=== PATIENT | female | born 1965 | race Two or more races ===

== ENCOUNTER 2022-02-04 08:45 | Emergency (ER) | payer OTHER ==
[~2022-02-04] VITALS: Ht 167.6 cm; Wt 59.1 kg
[2022-02-04] MEDS ORDERED: cloNIDine HCL 0.1 MG TAB ONE (08:56)
[2022-02-04] MEDS ORDERED: cloNIDine HCL 0.1 MG TAB PO ONE (09:00)
[2022-02-04 09:08] VITALS: BP 172/107
[2022-02-04] MEDS ORDERED: ACET-1080 PO (09:56)
[2022-02-04] MEDS ORDERED: ACETAMINOPHEN 500 MG TAB PO ONE (10:00)
== END 2022-02-04 10:05 | disposition home or self-care (01) ==
LOC: ER 08:45
DX: G44.209 Tension-type headache, unspecified, not intractable (principal); F41.9 Anxiety disorder, unspecified; I10 Essential (primary) hypertension; Z79.899 Other long term (current) drug therapy
CPT/HCPCS: 70450

== ENCOUNTER 2022-07-23 16:39 | Emergency (ER) | payer MEDICAID ==
[~2022-07-23] VITALS: Ht 165.1 cm; Wt 58.5 kg
[~2022-07-23 16:39] MED LIST: ACET-1080 PO
[2022-07-23 17:41] LABS: Albumin 4.6 g/dL (3.4-5.0); BUN/Creatinine Ratio 27.9 (10.0-20.0); Calcium 9.9 mg/dL (8.5-10.1); Potassium 4.1 mmol/L (3.5-5.1)
[2022-07-23 17:49] LABS: Basophils # (auto) 0 10 ^3/uL (0-0.2); Basophils % (auto) 0.7 % (0.0-2.0); Eosinophils # (auto) 0.1 10 ^3/uL (0-0.8); Hematocrit 40.7 % (36.0-46.0); Hemoglobin 13.9 g/dL (12.2-16.2); Lymphocytes # (auto) 2.6 10 ^3/uL (0.4-5.4); Mean Corpuscular Hemoglobin 31.9 pg (28.0-32.0); Mean Corpuscular Hgb Conc. 34.2 g/dL (32.0-36.0); Mean Corpuscular Volume 93.1 fL (80.0-100.0); Monocytes # (auto) 0.4 10 ^3/uL (0-1.3); Monocytes % (auto) 6.2 % (0.0-12.0); Neutrophils # (auto) 3.7 10 ^3/uL (1.6-8.6); Neutrophils % (auto) 53.1 % (37.0-80.0); Nucleated Red Blood Cells % 0.1 %; Red Blood Cells 4.37 10^6/uL (4.0-5.20); White Blood Cell 6.9 10^3/uL (4.4-10.8)
[2022-07-23 17:56] LABS: INR 0.99 (0.9-1.15); Partial Thromboplastin Time 28.6 sec (24.6-33.4)
[2022-07-23 22:30] VITALS: BP 147/94
== END 2022-07-23 22:35 | disposition home or self-care (01) ==
LOC: ER 16:39
DX: R07.89 Other chest pain (principal); F41.9 Anxiety disorder, unspecified; E78.5 Hyperlipidemia, unspecified; I10 Essential (primary) hypertension
CPT/HCPCS: 36415; 71045; 80053; 84484; 85025; 85379; 85610; 85730; 93005

== ENCOUNTER 2023-08-29 15:34 | Inpatient (IN) | payer MEDICAID ==
[~2023-08-29] VITALS: Ht 165.1 cm; Wt 62.5 kg
[2023-08-29 16:14] LABS: Basophils # (auto) 0.1 10 ^3/uL (0-0.2); Basophils % (auto) 0.8 % (0.0-2.0); Eosinophils # (auto) 0 10 ^3/uL (0-0.8); Eosinophils % (auto) 0.5 % (0.0-7.0); Hematocrit 38.8 % (36.0-46.0); Lymphocytes # (auto) 1.3 10 ^3/uL (0.4-5.4); Lymphocytes % (auto) 20.5 % (10.0-50.0); Mean Corpuscular Hemoglobin 31.4 pg (28.0-32.0); Mean Corpuscular Hgb Conc. 33.3 g/dL (32.0-36.0); Mean Corpuscular Volume 94.2 fL (80.0-100.0); Monocytes # (auto) 0.3 10 ^3/uL (0-1.3); Monocytes % (auto) 4.7 % (0.0-12.0); Neutrophils # (auto) 4.6 10 ^3/uL (1.6-8.6); Neutrophils % (auto) 73.5 % (37.0-80.0); Red Blood Cells 4.12 10^6/uL (4.0-5.20); Red Cell Distribution Width 13.3 % (11.8-14.3); White Blood Cell 6.2 10^3/uL (4.4-10.8)
[2023-08-29 16:31] LABS: Alanine Aminotransferase 23 U/L (7-40); Albumin 4.9 g/dL (3.2-4.8); Alkaline Phosphatase 79 U/L (46-116); Anion Gap 7 (5-15); Aspartate Aminotransferase 19 U/L (13-40); BUN/Creatinine Ratio 28.2 (10.0-20.0); Bilirubin, Total 1.6 mg/dL (0.2-1.0); Blood Urea Nitrogen 22 mg/dL (9-23); Calcium 9.9 mg/dL (8.5-10.1); Carbon Dioxide 26 mmol/L (20-30); Chloride 108 mmol/L (98-107); Glucose 111 mg/dL (74-106); Potassium 3.6 mmol/L (3.5-5.1); Sodium 141 mmol/L (136-145); Total Protein 7.3 g/dL (5.7-8.2)
[2023-08-29] MEDS ORDERED: MORPHINE SULFATE INJ 2 MG/ml SYRG IV PRN (21:00)
[2023-08-29] MEDS ORDERED: ACETAMINOPHEN 325 MG TAB PO PRN (21:00)
[2023-08-29] MEDS ORDERED: NITROGLYCERIN 0.4 MG SL TAB SL PRN (21:00)
[2023-08-29] MEDS ORDERED: ONDANSETRON HCL 4 MG/2 ML VIAL IV PRN (21:00)
[2023-08-29 22:55] VITALS: PULSE 83; RESP 13; O2SAT 100
[2023-08-29] MEDS: ASPirin 325 MG TAB PO ONE (22:59)
[2023-08-29] MEDS: ATORVASTATIN 20 MG TAB PO SCH (22:59)
[2023-08-29] MEDS: SODIUM CHLORIDE 0.9% 1,000 ML IV ONE (22:59)
[2023-08-29] MEDS: NITROGLYCERIN 0.4 MG SL TAB SL ONE (23:04)
[2023-08-29 23:12] VITALS: BP 135/85; PULSE 66; RESP 18; TEMP 98.6; O2SAT 99
[2023-08-30] VITALS (15 sets, daily range): BP systolic 107–147; BP diastolic 75–106; PULSE 56–76; RESP 14–20; TEMP 97.7–98.7; O2SAT 97–100
[2023-08-30] MEDS ORDERED: OMEG306C OR (00:52)
[2023-08-30] MEDS ORDERED: ASPI-543 PO (00:52)
[2023-08-30] MEDS ORDERED: LISI40TA16 PO (00:52)
[2023-08-30] MEDS ORDERED: FOLI-119 PO (00:52)
[2023-08-30 06:17] LABS: Chloride 113 mmol/L (98-107); Sodium 143 mmol/L (136-145)
[2023-08-30 06:18] LABS: Anion Gap 5 (5-15); Carbon Dioxide 25 mmol/L (20-30)
[2023-08-30 06:19] LABS: Calcium 9.5 mg/dL (8.5-10.1)
[2023-08-30 06:23] LABS: BUN/Creatinine Ratio 24.3 (10.0-20.0); Blood Urea Nitrogen 18 mg/dL (9-23); Glucose 86 mg/dL (74-106)
[2023-08-30 08:09] LABS: Basophils # (auto) 0 10 ^3/uL (0-0.2); Basophils % (auto) 0.9 % (0.0-2.0); Eosinophils # (auto) 0.2 10 ^3/uL (0-0.8); Eosinophils % (auto) 2.7 % (0.0-7.0); Hematocrit 37.3 % (36.0-46.0); Hemoglobin 12.5 g/dL (12.2-16.2); Lymphocytes % (auto) 35.3 % (10.0-50.0); Mean Corpuscular Hemoglobin 32.1 pg (28.0-32.0); Mean Corpuscular Hgb Conc. 33.5 g/dL (32.0-36.0); Mean Corpuscular Volume 95.8 fL (80.0-100.0); Monocytes # (auto) 0.4 10 ^3/uL (0-1.3); Monocytes % (auto) 7.4 % (0.0-12.0); Neutrophils % (auto) 53.7 % (37.0-80.0); Nucleated Red Blood Cells % 0.1 %; Red Cell Distribution Width 13.6 % (11.8-14.3); White Blood Cell 5.6 10^3/uL (4.4-10.8)
[2023-08-30 08:49] LABS: Hepatitis B Surface Antigen Negative (Negative)
[2023-08-30 09:11] LABS: Hepatitis C Antibody Negative (Negative)
[2023-08-30] MEDS: LISINOPRIL 20 MG TAB PO SCH (09:28)
[2023-08-30] MEDS: ASPirin 81 mg TAB PO SCH (09:29)
[2023-08-30 09:48] LABS: Triglycerides 75 mg/dL (< 150)
[2023-08-30 09:49] LABS: LDL Cholesterol 138 mg/dL (< 100)
[2023-08-30 09:50] LABS: HDL Cholesterol 60 mg/dL (40-59)
[2023-08-30 09:51] LABS: Cholesterol 205 mg/dL (< 200)
[2023-08-30 11:26] LABS: INR 1.07 (0.9-1.15); Partial Thromboplastin Time 26.8 SEC (24.5-34.5); Prothrombin Time 11.3 sec (9.3-11.8)
[2023-08-30] MEDS: IODIXANOL 320MG/ML 100ML BTL IV ONE (13:29)
[2023-08-30] MEDS: LIDOCAINE 2%HCL (LOCAL ANESTH.) INJ 20ML MDV ONE (13:29)
[2023-08-30] MEDS: HEPARIN SODIUM (PORCINE) 5000 UNITS/ML 1ML VIAL ONE (13:41)
[2023-08-30] MEDS: ANGIOMAX 250 MG VIAL IV ONE (13:41)
[2023-08-30] MEDS: MIDAZOLAM HCL 2MG/2ML 2ml VIAL (1mg/ml) ONE (13:42)
[2023-08-30] MEDS: SODIUM CHL 0.9% 0 ML ONE (13:42)
[2023-08-30] MEDS: VERAPAMIL 2.5MG/ML INJ 2ML VIAL IV ONE (13:42)
[2023-08-30] MEDS: fentaNYL CITRATE 100 MCG/2 ML VL ONE (13:42)
[2023-08-30] MEDS: IOHEXOL 350 MG/ML 100ML IJ ONE (14:20)
[2023-08-30] MEDS: ATORVASTATIN 20 MG TAB PO SCH (22:00)
[2023-08-30] MEDS: TEMAZEPAM 15 MG CAP PO PRN (22:00)
[2023-08-31 01:00] VITALS: BP 118/81; PULSE 73; RESP 20; TEMP 96.8; O2SAT 98
[2023-08-31 05:00] VITALS: BP 119/73; PULSE 67; RESP 20; TEMP 96.8; O2SAT 97
[2023-08-31 06:14] LABS: Chloride 112 mmol/L (98-107); Potassium 4.2 mmol/L (3.5-5.1); Sodium 140 mmol/L (136-145)
[2023-08-31 06:15] LABS: Anion Gap 6 (5-15); Carbon Dioxide 22 mmol/L (20-30)
[2023-08-31 06:16] LABS: Calcium 9.8 mg/dL (8.5-10.1)
[2023-08-31 06:20] LABS: Blood Urea Nitrogen 14 mg/dL (9-23); Glucose 91 mg/dL (74-106)
[2023-08-31 08:00] VITALS: PULSE 62; PULSE 69
[2023-08-31 09:00] VITALS: BP 125/89; PULSE 68; RESP 16; TEMP 98.3; O2SAT 100
[2023-08-31] MEDS ORDERED: AMLO1TAB22 PO (10:11)
[2023-08-31 10:40] LABS: Urine Bacteria None Seen /hpf (None Seen)
[2023-08-31 10:52] LABS: Urine Blood Negative /uL (Negative); Urine Clarity Clear (Clear); Urine Protein, UAD Negative (Negative); Urine Specific Gravity 1.005 (1.001-1.035); Urine Urobilinogen Normal (Negative); Urine WBC <1 /hpf (0 - 5)
[2023-08-31 10:59] LABS: Amphetamine Screen, Urine Neg (NEGATIVE); Barbiturate Scree,Urine Neg (NEGATIVE); Benzodiazephine Screen, Urine Neg (NEGATIVE); Cocaine Screen, Urine Neg (NEGATIVE)
[2023-08-31 11:00] LABS: Cannabinoid Screen, Urine Neg (NEGATIVE); Opiate Scree,Urine Neg (NEGATIVE); Phencyclidine Screen, Urine Neg (NEGATIVE); Urine Color STRAW (Yellow)
== END 2023-08-31 12:41 | disposition home or self-care (01) | DRG 191 ==
LOC: ER 15:34 → TELE 20:51 → TELE-WESTW 20:51
PROVIDERS: ADMIT Internal Medicine; ATTEND Emergency Medicine
PROC: B211YZZ Fluoroscopy of Multiple Coronary Arteries using Other Contrast (ICD-10-PCS; principal; 2023-08-30)
PROC: 4A023N7 Measurement of Cardiac Sampling and Pressure, Left Heart, Percutaneous Approach (ICD-10-PCS; 2023-08-30)
DX: I24.81 Acute coronary microvascular dysfunction (principal); E78.5 Hyperlipidemia, unspecified; Y90.9 Presence of alcohol in blood, level not specified; I10 Essential (primary) hypertension; F17.210 Nicotine dependence, cigarettes, uncomplicated; F10.10 Alcohol abuse, uncomplicated; Z83.3 Family history of diabetes mellitus; Z82.49 Family history of ischemic heart disease and other diseases of the circulatory system
CPT/HCPCS: 36415; 71045; 80048; 80053; 80061; 80307; 81001; 82306; 82607; 83036; 83735; 84443; 84484; 85025; 85379; 85610; 85730; 86803; 87340; 93005; 93306; 93458; 96360; 99152; G0378; J2250; Q9967

== ENCOUNTER 2025-01-21 09:42 | Day surgery (SDC) | payer MEDICAID ==
[2025-01-19 08:30] LABS: Hematocrit 41.5 % (36.0-46.0); Hemoglobin 14.3 g/dL (12.2-16.2); Mean Corpuscular Hemoglobin 31.4 pg (28.0-32.0); Mean Corpuscular Volume 90.9 fL (80.0-100.0); Nucleated Red Blood Cells % 0.0 %
[2025-01-19 08:31] LABS: Urine Protein, UAD TRACE (Negative)
[2025-01-19 08:46] LABS: INR 1.02 (0.9-1.15); Partial Thromboplastin Time 26.4 SEC (24.5-34.5); Prothrombin Time 10.8 sec (9.3-11.8)
[2025-01-19 08:54] LABS: Alanine Aminotransferase 23 U/L (7-40); Albumin 4.6 g/dL (3.2-4.8); Alkaline Phosphatase 90 U/L (46-116); Anion Gap 10 (5-15); BUN/Creatinine Ratio 21.4 (10.0-20.0); Blood Urea Nitrogen 18 mg/dL (9-23); Calcium 9.6 mg/dL (8.7-10.4); Carbon Dioxide 28 mmol/L (20-31); Chloride 106 mmol/L (98-107); Glucose 104 mg/dL (74-106); Potassium 4.7 mmol/L (3.5-5.1); Sodium 144 mmol/L (136-145); Total Protein 7.2 g/dL (5.7-8.2)
[2025-01-19 08:55] LABS: Bilirubin, Total 0.9 mg/dL (0.2-1.0)
[~2025-01-21] VITALS: Ht 165.1 cm; Wt 65.3 kg
[~2025-01-21 09:42] MED LIST changes: +AMLO1TAB22 PO; +ASPI-543 PO; +FOLI-119 PO; +LISI40TA16 PO; +OMEG306C OR
[2025-01-21] MEDS ORDERED: ETOMIDATE (2MG/ML) 10ML VIAL IV ONE (09:43)
[2025-01-21] MEDS ORDERED: fentaNYL CITRATE 100 MCG/2 ML VL ONE (12:46)
[2025-01-21] MEDS ORDERED: PROPOFOL 10 MG/ML 20 ML IV ONE (12:46)
[2025-01-21] MEDS ORDERED: HYDROmorphone HCL 2 MG/ML VL/or syr ONE (12:46)
[2025-01-21] MEDS: ceFAZolin 1GM/50ML 100 ML IV ONE (12:57)
[2025-01-21] MEDS: ceFAZolin 1GM/50ML 50 ML IV ONE (12:58)
[2025-01-21] MEDS: LIDOCAINE 1% HCL (LOCAL ANESTH.) INJ 20ML MDV ONE (13:09)
[2025-01-21] MEDS: SILVER NITRATE-POTAS NITRA STICK TOP ONE (13:12)
[2025-01-21] MEDS: NEOMYCIN-BACITRACIN-POLYM 15GM TOP OINT TOP ONE (13:21)
[2025-01-21 13:23] VITALS: PULSE 159; RESP 15; TEMP 97.3; O2SAT 98
--- NOTE | 2025-01-21 13:34 | DVHOP2 ---
Operative Report - 2 Report Details Date: 01/21/25 Preop Diagnosis: 1. Left foot bunion 2. Left foot ingrown nail bilateral hallux 3. Right foot ingrown nail bilateral hallux 4. Bilateral foot pain Postop Diagnosis: Same as preop Surgeon: Mindy Núñez MD Anesthesiologist: Same as preop Anesthesia: Mac Consent: The patient was informed of the risks and benefits of the procedure. These include but are not limited to complications of anesthesia, postoperative infection, incomplete relief of symptoms, recurrence of symptoms, damage to blood vessels, nerves and tendons, deep venous thrombosis, pulmonary embolism and possible need for repeat surgery in the future. Complications: None Estimated Blood Loss: Minimal Fluids: See anesthesia Findings: Consistent with diagnosis Indications for Surgery: Worsening foot pain Name of Procedure Performed 1. Left foot MIS bunionectomy (92077) 2. Left hallux bilateral ingrown nail matrix (21435) 3. Right hallux bilateral ingrown nail matrix (15448) Procedure Details Procedure Details: PRE-PROCEDURE INFORMATION: In the pre-op holding area, the extremity to be operated on was clearly marked and the patient verified correct laterality of the marking. The patient was transferred to the OR table and placed in a supine position. A timeout was performed in which identification of the correct patient, procedure, location, and materials was done. The left foot and leg were prepped and draped in normal sterile fashion DESCRIPTION OF PROCEDURE: Attention was directed to the left 1st metatarsophalangeal joint where a stab incision was made at the neck of the 1st metatarsal. Care was taken to avoid damage the neurovascular and tendinous str uctures. An osteotomy was then made at the neck of the 1st metatarsal. The metatarsal head was then shifted into position aligning the sesamoid bones over the fragment. Using a 6 2 K-wire, the wire was then driven down the shaft of the 1st metatarsal to hold the head in place until the osteotomy has healed. The left hallux toe was anesthetized with 3cc of 1% Lidocaine plain in standard fashion. The area was dressed and prepped in usual sterile technique with Betadine, a tourniquet was applied for this procedure. Using a freer elevator, Dominican Anvil, and hemostat, the offending nail and/or nail border(s) was elevat ed and removed. Mild serous drainage noted, no purulent drainage. Non-viable tissue was removed with a curette. The nail borders were then treated with 3 applications of approximately 20-30 seconds of silver nitrate followed by neutralization with alcohol. Bacitracin, sterile gauze and Coban dressing was applied to the digit. The right hallux toe was anesthetized with 3cc of 1% Lidocaine plain in standard fashion. The area was dressed and prepped in usual sterile technique with Betadine, a tourniquet was applied for this procedure. Using a freer elevator, Dominican Anvil, and hemostat, the offending nail and/or nail border(s) was gurmeet vated and removed. Mild serous drainage noted, no purulent drainage. Non-viable tissue was removed with a curette. The nail borders were then treated with 3 applications of approximately 20-30 seconds of silver nitrate followed by neutralization with alcohol. Bacitracin, sterile gauze and Coban dressing was applied to the digit. All surgical wounds were irrigated copiously with saline and closed in layers with the aforementioned suture material. A dry sterile dressing was placed on the surgical extremity. The patient was placed in a postop shoe POSTOPERATIVE INFORMATION: The patient tolerated the above noted procedure and anesthesia well and was transferred to the PACU with vital signs stable, and vascular status intact with capillary refill intact to all digits. Postoperative instructions reviewed in detail with the patient with written instructions provided. Patient will return to clinic in approximately 10-14 days for first postoperative visit. Patient has the number of the clinic and was instructed to call prior to that time should any problems, questions, or concerns arise. Condition Good Disposition Home Visit Coding Podiatry Date of Service if different f: Jan 21, 2025 Billing Provider: MINDY NÚÑEZ DPM Podiatry Common Visit Codes: PROCEDURE ONLY MINDY NÚÑEZ DPM Jan 21, 2025 13:34
[2025-01-21] MEDS ORDERED: ACETAMINOPHEN IV 1000 MG/100ML (10MG/ML) IV PRN (14:00)
[2025-01-21] MEDS: HYDROmorphone HCL 2 MG/ML VL/or syr IV PRN (14:06)
[2025-01-21 14:10] VITALS: BP 133/89; PULSE 77; RESP 19; O2SAT 97
[2025-01-21] MEDS: ONDANSETRON HCL 4 MG/2 ML VIAL IV PRN (14:23)
== END 2025-01-21 14:15 | disposition home or self-care (01) ==
LOC: SUR 09:42 → EDUNIT# 15:45
PROVIDERS: ATTEND Podiatrist
DX: M21.611 Bunion of right foot (principal); M20.11 Hallux valgus (acquired), right foot; M21.612 Bunion of left foot; L60.0 Ingrowing nail; M79.672 Pain in left foot; Z98.51 Tubal ligation status
CPT/HCPCS: 11750; 28306; 36415; 80053; 81001; 85025; 85610; 85730; J0690; J1171; J2003; J2405; J2704; J3010